=== PATIENT | female | born 1990 | race Caucasian/White ===

== ENCOUNTER 2020-06-14 16:43 | Emergency (ER) | payer OTHER, SELFPAY ==
--- NOTE | 2020-06-14 16:48 | ED.GENADULT ---
HPI - General Adult General Chief complaint: Upper Respiratory Infection Stated complaint: poosible sinus infection Time Seen by Provider: 06/14/20 17:00 Source: patient Mode of arrival: ambulatory Limitations: no limitations History of Present Illness HPI narrative: 23-year-old female patient presents to the [facility] with complaints of runny nose and a slight cough that started approximately 4 days ago. Denies any fevers, body aches or chills. Denies any chest pain, shortness of breath. Denies any abdominal pain, nausea, vomiting or diarrhea. Denies any sore throat or ear pain. Patient states she has been taking [id number] DayQuil, NyQuil, Zyrtec for her symptoms. Related Data Home Medications Medication Instructions Recorded Confirmed No Home Medications 06/14/20 06/14/20 Allergies Allergy/AdvReac Type Severity Reaction Status Date / Time No Known Allergies Allergy Verified 06/14/20 17:01 Review of Systems Review of Systems: Narrative: CONSTITUTIONAL: Denies fever, chills, or sweats. EYES: Denies visual changes, redness, or discharge. ENT: Positive clear rhinorrhea, denies congestion, sore throat, or otalgia. CARDIOVASCULAR: Denies chest pain, palpitations, or edema. RESPIRATORY: Positive slight nonproductive cough, denies dyspnea. GASTROINTESTINAL: Denies abdominal pain, nausea, vomiting, or diarrhea. GENITOURINARY: Denies dysuria or hematuria. SKIN: Denies rash or itching. MUSCULOSKELETAL: Denies back pain, joint pain, or myalgia. NEUROLOGIC: Denies headache, numbness, or weakness. PSYCHIATRIC: Denies anxiety or depression. [facility] Past Medical History Medical History (Updated 06/14/20 @ 17:07 by CORI Bose) Obesity Surgical History Surgical History (Updated 06/14/20 @ 16:52 by CORI Bose) History of tonsillectomy Social History Social History Smoking status: Never smoker Alcohol intake: current Gender identity (if verbalized by the patient): Female Comments At the time of my signature I agree with nursing past medical history, surgical, social, and family history. There is no relevant family history pertinent to the presenting complaint. Exam Narrative: Exam Narrative: GENERAL: Well-appearing, well-nourished, and in no acute distress. HEAD: Normocephalic, atraumatic. EYES: PERRLA and EOMI. ENT: Nares with erythema and edema noted bilaterally, no rhinorrhea or epistaxis. Mucous membranes moist. Posterior pharynx with no erythema, tonsillar joint, exudates or lesions present. There is a little bit of fluid noted behind the right ear. No erythema or foreign bodies noted to the canal. NECK: Supple. No lymphadenopathy CHEST: Clear to auscultation. No respiratory distress. HEART: Regular rate and rhythm. No murmur heard. Normal peripheral pulses. ABDOMEN: Soft, nontender, nondistended, normal active bowel sounds. EXTREMITIES: Normal range of motion. No edema. SKIN: Warm, dry, no rash. NEURO: No focal deficits. Alert and oriented x3. Course Vital Signs Vital signs: Vital Signs Temperature 36.4 C 06/14/20 16:54 Pulse Rate 89 06/14/20 16:54 Respiratory Rate 16 06/14/20 16:54 Blood Pressure 117/72 06/14/20 16:54 Pulse Oximetry 100 06/14/20 16:54 Temperature 36.4 C 06/14/20 16:54 Pulse Rate 89 06/14/20 16:54 Respiratory Rate 16 06/14/20 16:54 Blood Pressure 117/72 06/14/20 16:54 Pulse Oximetry 100 06/14/20 16:54 Vital signs reviewed. Medical Decision Making Differential Diagnosis Differential Diagnosis: Differential diagnosis: Allergic rhinitis, chronic sinusitis, tonsillitis, acute sinusitis, infectious mononucleosis, seasonal influenza, pertussis, diphtheria, meningococcal disease, viral syndrome, viral bronchitis, RSV, COVID-19 Discussed with patient the fact that she is not having any severe symptoms including fever, chest pain, shortness of breath and that her s
[2020-06-14 16:54] VITALS: BP 117/72; PULSE 89; RESP 16; TEMP 36.4; O2SAT 100
== END 2020-06-14 17:15 | disposition home or self-care (01) ==
PROVIDERS: Emergency Provider Nurse Practitioner Family; PCP Family Medicine
DX: J01.90 Acute sinusitis, unspecified (principal); Z20.828 Contact with and (suspected) exposure to other viral communicable diseases; E66.9 Obesity, unspecified
CPT/HCPCS: 99211; G0463

== ENCOUNTER 2020-06-15 08:34 | Outpatient (NON) | payer OTHER, SELFPAY ==
[2020-06-15 22:42] LABS: SARS-CoV-2 RNA PCR Negative
== END 2020-06-15 08:35 ==
LOC: ANHCOVIDDT 08:36
PROVIDERS: PCP Family Medicine; Visit Provider Nurse Practitioner Family
DX: J01.90 Acute sinusitis, unspecified (principal); Z20.828 Contact with and (suspected) exposure to other viral communicable diseases
CPT/HCPCS: 87635; C9803; U0003

== ENCOUNTER 2023-10-12 13:56 | Emergency (ER) | payer BC, SELFPAY ==
--- NOTE | 2023-10-12 14:14 | ED.EAR ---
HPI - Ear Problem General Chief complaint: Ear Stated complaint: Sinus/Ear Irritation Time Seen by Provider: 10/12/23 14:14 Source: patient Mode of arrival: ambulatory Limitations: no limitations History of Present Illness HPI Narrative: 33 yo F presents with c/o of nasal congestion, intermittent sinus pressure and dry cough for 2 wks. Sinus congestion worse past 2 days. R ear pain started yesterday, noticed clear drainage at work today. Pt states tearful at work today due to pain and manger let her leave early. Afebrile. all systems reviewed and negative except as noted above. Related Data Allergies Allergy/AdvReac Type Severity Reaction Status Date / Time amoxicillin AdvReac Mild Abdominal Verified 10/12/23 14:01 Pain melatonin AdvReac Mild upset Verified 10/12/23 14:01 stomach Review of Systems Review of Systems: CONSTITUTIONAL: Denies fever, chills, or sweats. EYES: Denies visual changes, redness, or discharge. ENT: Reports rhinorrhea, congestion, sinus pressure. Denies sore throat. Reports right ear pain. CARDIOVASCULAR: Denies chest pain, palpitations, or edema. RESPIRATORY: Reports cough. Denies dyspnea. GASTROINTESTINAL: Denies abdominal pain, nausea, vomiting, or diarrhea. GENITOURINARY: Denies dysuria or hematuria. SKIN: Denies rash or itching. MUSCULOSKELETAL: Denies back pain, joint pain, or myalgia. NEUROLOGIC: Denies headache, numbness, or weakness. PSYCHIATRIC: Denies anxiety or depression. All other systems reviewed are negative, except as documented in HPI. PMFSH Past Medical History Medical History Obesity Surgical History Surgical History History of tonsillectomy Social History Social History Smoking status: Never smoker Alcohol intake: current Gender identity (if verbalized by the patient): Female Comments At time of signature, agree with nursing past medical, surgical, social and family history. There is no relevant family history pertinent to the presenting complaint. Exam Narrative: GENERAL: This is a well-nourished, well-developed patient, in no apparent distress. HEAD: normocephalic, atraumatic. EYES: PERRL. Sclera clear/white. Vision is grossly intact. EARS: External ears normal, auditory canals clear and without drainage, right TM erythematous, purulence fluid, bulging. Left TM normal. No perforation bilaterally. Hearing grossly intact. NOSE: External nose normal with Congested with purulent nasal drainage, nares erythematous and swollen. THROAT: Mucous membranes moist, Erythema with postnasal drainage. No swelling or exudates. NECK: Neck supple, non-tender without lymphadenopathy, masses or thyromegaly. CARDIOVASCULAR: Regular rate and rhythm without murmurs, gallops, or rubs. RESPIRATORY: Clear to auscultation. Breath sounds equal bilaterally. No wheezes, rales, or rhonchi. SKIN: warm, Dry, intact with no suspicious lesions or rash, good texture and turgor. NEURO: awake, alert, and oriented to person, place and time. There were no obvious focal neurologic abnormalities. EXTREMITIES: No joint tenderness, effusion, or edema noted. Course Course Level of Care: Express Care Visit Vital Signs Vital signs: Vital Signs Temperature 36.9 C 10/12/23 14:15 Pulse Rate 98 10/12/23 14:15 Respiratory Rate 18 10/12/23 14:15 Blood Pressure 127/85 10/12/23 14:15 Pulse Oximetry 100 10/12/23 14:15 Oxygen Delivery Room Air 10/12/23 14:15 Temperature 36.9 C 10/12/23 14:15 Pulse Rate 98 10/12/23 14:15 Respiratory Rate 18 10/12/23 14:15 Blood Pressure 127/85 10/12/23 14:15 Pulse Oximetry 100 10/12/23 14:15 Oxygen Delivery Room Air 10/12/23 14:15 Reviewed Medical Decision Making MDM Narrative Medical decision making narrative: Patient is
[2023-10-12 14:15] VITALS: BP 127/85; PULSE 98; RESP 18; TEMP 36.9; O2SAT 100
== END 2023-10-12 14:25 | disposition home or self-care (01) ==
PROVIDERS: Emergency Provider Nurse Practitioner Family; PCP Family Medicine
DX: H66.91 Otitis media, unspecified, right ear (principal); J01.90 Acute sinusitis, unspecified; E66.9 Obesity, unspecified; Z68.41 Body mass index [BMI] 40.0-44.9, adult
CPT/HCPCS: 99213; G0463

== ENCOUNTER 2024-01-04 13:09 | Emergency (ER) | payer BC, SELFPAY ==
[2024-01-04 13:32] VITALS: BP 140/85; PULSE 97; RESP 18; TEMP 36.8; O2SAT 100
--- NOTE | 2024-01-04 13:46 | ED.GENADULT ---
HPI - General Adult General Chief complaint: Ear Stated complaint: right ear pain Time Seen by Provider: 01/04/24 13:46 Source: patient, RN notes reviewed and old records reviewed Mode of arrival: ambulatory Limitations: no limitations History of Present Illness HPI narrative: 33-year-old female presents to the [facility] with concerns for right ear pain that started a couple of days ago. Has a history of otitis externa. Has been swimming every day. Denies fevers. States she has taken Tylenol Related Data Allergies Allergy/AdvReac Type Severity Reaction Status Date / Time amoxicillin AdvReac Mild Abdominal Verified 01/04/24 13:39 Pain melatonin AdvReac Mild upset Verified 01/04/24 13:39 stomach Review of Systems Review of Systems: All systems reviewed & are unremarkable except as noted in HPI and below Constitutional: Constitutional: Reports no additional constitutional complaints Eyes: Eyes: Reports no additional eye complaints ENT: Reports as per HPI and Reports otalgia Cardiovascular: Cardiovascular: Reports no additional cardiovascular complaints, Denies chest pain and Denies dyspnea Respiratory: Respiratory: Reports no additional respiratory complaints, Denies chest congestion, Denies cough and Denies dyspnea Gastrointestinal: Gastrointestinal: Reports no additional gastrointestinal complaints, Denies abdominal pain, Denies nausea and Denies vomiting Musculoskeletal: Musculoskeletal: Reports no additional musculoskeletal complaints Integumentary/Breasts: Skin/Breast: Reports system reviewed and no additional complaints, except as docu Neurologic: Reports system reviewed and no additional complaints, except as documented Psychiatric: Psychiatric: Reports no additional psychiatric complaints Allergic/Immunologic: Allergic/Immunologic: Reports no additional allergic/immunologic complaints PMFSH Past Medical History Medical History Obesity Surgical History Surgical History History of tonsillectomy Social History Social History Smoking status: Never smoker Alcohol intake: current Gender identity (if verbalized by the patient): Female Comments At the time of my signature, I reviewed and agree with the nursing past medical, surgical, social, and family history. There is no relevant family history pertinent to the patient complaint. Exam Const: General: cooperative, healthy appearing, comfortable, no acute distress, well developed, alert and well nourished Nutritional Appearance: well nourished Orientation/consciousness: patient oriented x3 Limitations: no limitations HENMT: Head: normal to inspection Ears: hearing grossly normal bilaterally, external ears normal, mastoids normal, Abnormal EAC present erythema on the right, edema on the right, EAC tenderness on the right and otic discharge purulent on the right and TM abnormal erythematous on the right Face/Nose/Sinus: Normal external nose present, Normal nares present, Normal nasal mucous membranes and turbinates present, normal facial exam and face symmetric Face and sinus: normal facial exam and face symmetric Eyes: General: appearance normal, both eyes and all related structures Alignment and Position: alignment normal Periorbital: periorbital findings normal Pupils: Equal, round and reactive pupils present EOM: EOMs intact bilaterally Neck: Neck: normal visual inspection, full ROM, no lymphadenopathy and no meningeal signs Chest: Chest palpation & inspection: normal inspection of the chest Resp: Effort & Inspection: normal respiratory effort and able to speak in complete sentences Auscultation: clear to auscultation bilaterally, no crackles, no rales, no rhonchi and no wheezes Cardio: Rate: regular rate Rhythm: regular rhythm Skin: General skin exam: normal color
== END 2024-01-04 14:00 | disposition home or self-care (01) ==
PROVIDERS: Emergency Provider Nurse Practitioner; PCP Family Medicine
DX: H60.91 Unspecified otitis externa, right ear (principal); H66.91 Otitis media, unspecified, right ear; E66.9 Obesity, unspecified; Z68.41 Body mass index [BMI] 40.0-44.9, adult
CPT/HCPCS: 99213; G0463

== ENCOUNTER 2025-01-15 07:21 | Outpatient (CLI) | payer BC, SELFPAY ==
--- OUTSIDE RECORDS SUMMARY | 2025-01-15 07:26 | XMS_ITS | Clinical Summary ---
Author Organization [facility] Address [address] [place] [address] Care Team Providers Care Complaint Inspector Name Role Phone Carlos Joe MD Primary Care Provider [phone] Source Comments [facility],non-owned Affiliates and Associated Physician Practices is amultiple site organization consisting of ambulatory clinics and hospital sitesin [place], [place], [place] and [place]. This disclosure is being madepursuant to the Care Everywhere program and may not contain all information available regarding this patient. Last updated 18.[facility] mSnap Allergies Active Allergy Reactions Criticality Noted Date Comments Amoxicillin Diarrhea 11/08/2016 Medications * Be aware that medications may not be up to date on this document. Alwaysverify current medications with the patient. 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 Gender Identity Not on file Sexual Orientation Not on file Last Filed Vital Signs Vital Sign Reading Time Taken Comments Blood Pressure 118/82 11/08/2016 11:53 AM CDT Pulse 85 11/08/2016 11:53 AM CDT Temperature 36.9 C (98.5 F) 11/08/2016 11:53 AM CDT Respiratory Rate 16 11/08/2016 11:53 AM CDT Oxygen Saturation 98% 11/08/2016 11:53 AM CDT Inhaled Oxygen Concentration - - Weight 97.5 kg (215 lb) 11/08/2016 11:53 AM CDT Height 152.4 cm (5') 11/08/2016 11:53 AM CDT Body Mass Index 41.99 11/08/2016 11:53 AM CDT Plan of Treatment Health Maintenance Due Date Last Done Comments HIV SCREENING 2006 HEPATITIS C SCREENING 03/05/2009 DTAP/TDAP/TD VACCINES (1 - Tdap) 2010 HEPATITIS B VACCINE (1 of 3 - 19+ 3-dose series) 2010 PAP SMEAR 2012 HPV VACCINE (1 - 3-dose SCDM series) 2018 COVID-19 VACCINE (1 - 2023-2 5 season) 2024 DEPRESSION SCREENING 07/02/2024 INFLUENZA VACCINE (#1) 2025 ZOSTER VACCINE (1 of 2) 2041 HIB VACCINE Aged Out No longer eligi ble based on patient's age to complete this topic MENINGOCOCCAL (Group B) VACC INE SHARED DECISION-MAKING Aged Out No longer eligibl e based on patient's age to complete this topic MENINGOCOCCAL GROUPS A/C/Y/W VACCINE Aged Out No longer eligible b ased on patient's age to complete this topic PNEUMOCOCCAL VACCINE Aged Out No long er eligible based on patient's age to complete this topic Insurance ANTHEM Care Teams Complaint Inspector Relationship Specialty Start Date End Date Carlos Joe MD [address] [place] [address] PCP - General Family Medicine 09/01/16
--- OUTSIDE RECORDS SUMMARY | 2025-01-15 07:26 | XMS_ITS | Encounter Summary ---
Author Organization [facility] Address [address] [place] [address] Care Team Providers Care Weight Analyst Name Role Phone Carlos Joe MD Primary Care Provider Encounter Details Date Type Department Care Team (Late st Contact Info) Description 07/31/2023 Lab Requisition [facility] - DermPath Lab [address] [place] [address] Negro Shepard MD [address] [address] Social History Tobacco Use Types Packs/Day Years Used Date Smoking Tobacco: Never Comments No Sex and Gender Information Value Date Recorded Sex Assigned at Not on file 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 Gender Identity Not on file Sexual Orientation Not on file documented as of this encounter Plan of Treatment Not on file documented as of this encounter Procedures Procedure Name Priority Date/Time Associated Diagnosis Comments DERMATOPATHOLOGY Routine 07/30/2023 12:0 0 AM UTILIZATION REVIEW COORDINATOR documented in this encounter Results * DERMATOPATHOLOGY (07/30/2023 12:00 AM UTILIZATION REVIEW COORDINATOR) Case Report Dermatopathology Report Case: [id number] Authorizing Provider: Negro Shepard MD Collected: 07/30/2023 12:00 AM Ordering Location: [facility] DermPath Lab Received: 07/31/2023 09:42 AM Pathologist: Radha Leung MD Specimen: Skin, scalp 1:12 PM UTILIZATION REVIEW COORDINATOR DERMATOPATHOLOGY LABORATORY Final Diagnosis Specimen A. SKIN, scalp: TRICHILEMMAL (PILAR) CYST WITH EVIDENCE OF RUPTURE (L72.12) NOT PRESENT AT SAMPLED MARGIN 4 1:12 PM [facility] DERMATOPATHOLOGY LABORATORY at [address] [facility] Clinical History CYST Path# [id number] Check Margin 4 1:12 PM [facility] DERMATOPATHOLOGY LABORATORY Gross Description Specimen A: Received is one formalin filled container labeled with the patient's name and designated scalp. The specimen consists of a piece of skin measuring [id number] mm. The specimen is serially sectioned and a sales representative cash registers section is submitted in cassette 1. Jar 1. 4 1:12 PM [facility] DERMATOPATHOLOGY LABORATORY Microscopic Description Specimen A. SKIN, scalp: Sections show a cyst that is lined by stratified squamous epithelium that shows trichilemmal keratinization (no granular layer). There is homogeneous pink keratin within the cyst. Surrounding this is an infiltrate with neutrophils, histiocytes, and multinucleated giant cells. This lesion is not present at the sampled margin of the specimen. 1:12 PM [facility] DERMATOPATHOLOGY LABORATORY Disclaimer An external and internal positive and negative controls are appropriate for the histochemical, immunohistochemical and immunofluorescence stain(s) in this case (if any), except where stated explicitly. The performance characteristics of the stain(s) cited in this report were developed and its performance characteristic determined by the Dermatopathology Laboratory at [facility], directed by Dr. Roberto Cunningham. These tests need not be, and therefore are not, approved by the [place] Food and Drug Administration. The tests are used for clinical purposes. Billing Codes Specimen Charges Stain Charges 05185 1 4 1:12 PM [facility] DERMATOPATHOLOGY LABORATORY Embedded Images 4 1:12 PM [facility] DERMATOPATHOLOGY LABORATORY Pathology/Cytolog y TISSUE SPECIMEN FROM SKIN / Unknown 07/30/2023 07/31/2023 9:42 AM [facility] us Negro Shepard MD LAB - PATHOLOGY/CYTOLOGY ORDER ARYAN Final Result DERMATOPATHOLOGY LABORATORY [facility] - Department of Dermatology [address] [phone] documented in this encounter Visit Diagnoses Not on filedocumented in this encounter Care Teams Weight Analyst Relationship Specialty Start Date End Date Carlos Joe MD [address] [place] [address] PCP - General Family Medicine 09/01/16 documented as of this encounter
--- OUTSIDE RECORDS SUMMARY | 2025-01-15 07:26 | XMS_ITS | Clinical Summary ---
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 Gender Identity Not on file Sexual Orientation Not on file Plan of Treatment Health Maintenance Due Date Last Done Comments Cervical Cancer Screening Pa p Smear (Age 30 to 64) Every 3 Years 1991 Annual Physical 1994 Hepatitis C 2009 DTaP, Tdap and Td Vaccines ( 1 - Tdap) 2010 Hepatitis B Vaccines (1 of 3 - 19+ 3-dose series) 2010 Cervical Cancer Screening Pa p with HPV Testing (Age 30 to 64) Every 5 Years 2021 Cervical Cancer Screening with HPV 2021 COVID-19 Vaccine ( - 2023-2 5 season) 2024 HPV Vaccines Aged Out No longer eligi ble based on patient's age to complete this topic Meningococcal B Vaccine Aged Out No l onger eligible based on patient's age to complete this topic Meningococcal Vaccine Aged Out No philippe matthew eligible based on patient's age to complete this topic Pneumococcal Vaccine: Pediat rics (0 to 5 Years) and At-Risk Patients (6 to 49 Years) Aged Out No longer eligible b ased on patient's age to complete this topic RSV Immunizations Under 20 Months Aged Out No longer eligible based on patient's age to complete this topic
--- OUTSIDE RECORDS SUMMARY | 2025-01-15 07:26 | XMS_ITS | Encounter Summary ---
Author Organization [facility] Address [address] [place] [address] Care Team Providers Care Feltmaker Name Role Phone Carlos Joe MD Primary Care Provider [phone] Encounter Details Date Type Department Care Team (Late st Contact Info) Description 07/31/2023 Lab Requisition [facility] - DermPath Lab [address] [place] [address] Negro Shepard MD [address] [place] [address] Social History Tobacco Use Types Packs/Day Years Used Date Smoking Tobacco: Never Comments No Sex and Gender Information Value Date Recorded Sex Assigned at Not on file 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
[2025-01-15 08:17] LABS: Hematocrit 38.3 % (37.0-47.0); Hemoglobin 12.1 g/dL (12.0-15.0); Immature Granulocyte Percent A 0.3 % (0-0.5); Lymphocytes Absolute Auto 1.93 K/mm3 (0.9-3.2); Mean Corpuscular HGB Conc 31.6 g/dl (32-36); Mean Corpuscular Hemoglobin 24.6 pg (26-34); Mean Corpuscular Volume 78.0 fl (80-100); Nucleated Red Blood Cells Absolute Auto 0.000 K/mm3 (0.0-0.012); Nucleated Red Blood Cells Perc 0.0 % (0.0-0.2); Platelet Count Result 456 k/mm3 (150-375); Red Blood Count 4.91 M/mm3 (4.2-5.4); White Blood Count 9.3 K/mm3 (4.5-10.0)
[2025-01-15 08:38] LABS: Alanine Aminotransferase 32 U/L (6-35); Albumin Level 4.4 g/dL (3.5-5.1); Alkaline Phosphatase 81 U/L (38-126); Anion Gap 11 mmol/L (4-12); Aspartate Amino Transferase 34 U/L (14-36); Bilirubin,Total 0.4 mg/dL (0.2-1.3); Blood Urea Nitrogen 8 mg/dL (7-17); Calcium 9.3 mg/dL (8.4-10.2); Carbon Dioxide 23 mmol/L (22-30); Chloride 104 mmol/L (98-107); Cholesterol 192 mg/dL (0-200); Estimated Glomerular Filt Rate > 60; Glucose 105 mg/dL (65-110); HDL Direct 43 mg/dL; Potassium 4.2 mmol/L (3.4-5.0); Sodium 138 mmol/L (137-145); Total Protein 8.0 g/dL (6.3-8.2); Triglycerides 146 mg/dL (<150)
[2025-01-15 09:14] LABS: Thyroid Stimulating Hormone 1.540 uIU/mL (0.465-4.680)
[2025-01-15 09:25] LABS: Hemoglobin A1C 5.9 % (<5.7)
== END 2025-01-15 07:22 | disposition home or self-care (01) ==
LOC: ANHLAB 07:24
PROVIDERS: PCP Family Medicine
DX: Z00.00 Encounter for general adult medical examination without abnormal findings (principal); E66.9 Obesity, unspecified
CPT/HCPCS: 36415; 80053; 80061; 83036; 84443; 85025

== ENCOUNTER 2025-05-14 14:19 | Outpatient (CLI) | payer BC, SELFPAY ==
--- OUTSIDE RECORDS SUMMARY | 2025-05-14 14:41 | XMS_ITS | Clinical Summary ---
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 Gender Identity Not on file Sexual Orientation Not on file Plan of Treatment Health Maintenance Due Date Last Done Comments Cervical Cancer Screening Pa p Smear (Age 30 to 64) Every 3 Years 1991 Annual Physical 1994 Hepatitis C 2009 DTaP, Tdap and Td Vaccines ( 1 - Tdap) 2010 Hepatitis B Vaccines (1 of 3 - 19+ 3-dose series) 2010 HPV Vaccines (1 - 3-dose SCD M series) 2018 Cervical Cancer Screening Pa p with HPV Testing (Age 30 to 64) Every 5 Years 2021 Cervical Cancer Screening with HPV 2021 COVID-19 Vaccine ( - 2024-2 6 season) 2025 Influenza Adult (#1) 2025 Hepatitis A Vaccines Aged Out No long er eligible based [...]
--- OUTSIDE RECORDS SUMMARY | 2025-05-14 14:41 | XMS_ITS | Encounter Summary ---
Author Organization [facility] Address [address] [place] [address] Care Team Providers Care Family Program Specialist Name Role Phone Carlos Joe MD Primary Care Provider [phone] Encounter Details Date Type Department Care Team (Late st Contact Info) Description 07/31/2023 Lab Requisition [facility] - DermPath Lab [address] [place] [address] Negro Shepard MD [address] [place] [address] Social History Tobacco Use Types Packs/Day Years Used Date Smoking Tobacco: Never Comments No Sex and Gender Information Value Date Recorded Sex Assigned at Not on file 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 Gender Identity Not on file Sexual Orientation Not on file documented as of this encounter Plan of Treatment Not on file documented as of this encounter Procedures Procedure Name Priority Date/Time Associated Diagnosis Comments DERMATOPATHOLOGY Routine 07/30/2023 12:0 0 AM TRAFFIC ANALYST documented in this encounter Results * DERMATOPATHOLOGY (07/30/2023 12:00 AM TRAFFIC ANALYST) Case Report Dermatopathology Report Case: [id number] Authorizing Provider: Negro Shepard MD Collected: 07/30/2023 12:00 AM Ordering Location: [facility] DermPath Lab Received: 07/31/2023 09:42 AM Pathologist: Radha Leung MD Specimen: Skin, scalp 1:12 PM TRAFFIC ANALYST DERMATOPATHOLOGY LABORATORY Final Diagnosis Specimen A. SKIN, scalp: TRICHILEMMAL (PILAR) CYST WITH EVIDENCE OF RUPTURE (L72.12) NOT PRESENT AT SAMPLED MARGIN 4 1:12 PM [facility] DERMATOPATHOLOGY LABORATORY at [address] [facility] Clinical History CYST Path# [id number] Check Margin 4 1:12 PM [facility] DERMATOPATHOLOGY LABORATORY Gross Description Specimen A: Received is one formalin filled container labeled with the patient's name and designated scalp. The specimen consists of a piece of skin measuring 58m10e7 mm. The specimen is serially sectioned and a accounts receivable representative section is submitted in cassette 1. Jar 1. 4 1:12 PM [facility] DERMATOPATHOLOGY LABORATORY Microscopic Description Specimen A. SKIN, scalp: Sections show a cyst that is lined by stratified squamous epithelium that shows trichilemmal keratinization (no granular layer). There is homogeneous pink keratin within the cyst. Surrounding this is an infiltrate with neutrophils, histiocytes, and multinucleated giant cells. This lesion is not present at the sampled margin of the specimen. 4 1:12 PM [facility] DERMATOPATHOLOGY LABORATORY Disclaimer An external and internal positive and negative controls are appropriate for the histochemical, immunohistochemical and immunofluorescence stain(s) in this case (if any), except where stated explicitly. The performance characteristics of the stain(s) cited in this report were developed and its performance characteristic determined by the Dermatopathology Laboratory at [facility], directed by Dr. Roberto Cunningham. These tests need not be, and therefore are not, approved by the [place] Food and Drug Administration. The tests are used for clinical purposes. Billing Codes Specimen Charges Stain Charges 43302 1 4 1:12 PM [facility] DERMATOPATHOLOGY LABORATORY Embedded Images 4 1:12 PM [facility] DERMATOPATHOLOGY LABORATORY Pathology/Cytolog y TISSUE SPECIMEN FROM SKIN / Unknown 07/30/2023 07/31/2023 9:42 AM [facility] us Negro Shepard MD LAB - PATHOLOGY/CYTOLOGY ORDER ARYAN Final Result DERMATOPATHOLOGY LABORATORY [facility] - Department of Dermatology [address], [address] [phone] documented in this encounter Visit Diagnoses Not on filedocumented in this encounter Care Teams Family Program Specialist Relationship Specialty Start Date End Date Carlos Joe MD [address] [place] [address] PCP - General Family Medicine 09/01/16 documented as of this encounter
--- OUTSIDE RECORDS SUMMARY | 2025-05-14 14:41 | XMS_ITS | Encounter Summary ---
Author Organization [facility] Address [address] [place] [address] Care Team Providers Care Weaving Loom Operator Name Role Phone Carlos Joe MD Primary Care Provider [phone] Encounter Details Date Type Department Care Team (Late st Contact Info) Description 07/31/2023 Lab Requisition [facility] - DermPath Lab [address] [place] [address] Negro Shepard MD [address] [place] [address] Social History Tobacco Use Types Packs/Day Years Used Date Smoking Tobacco: Never Comments No Sex and Gender Information Value Date Recorded Sex Assigned at Not on file 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
--- OUTSIDE RECORDS SUMMARY | 2025-05-14 14:41 | XMS_ITS | Clinical Summary ---
Author Organization [facility] Address [address] [place] [address] Care Team Providers Care Marketing Traffic Coordinator Name Role Phone Carlos Joe MD Primary Care Provider [phone] Source Comments [facility],non-owned Affiliates and Associated Physician Practices is amultiple site organization consisting of ambulatory clinics and hospital sitesin [place], [place], [place] and [place]. This disclosure is being madepursuant to the Care Everywhere program and may not contain all information available regarding this patient. Last updated 18.[facility] Allergies Active Allergy Reactions Criticality Noted Date Comments Amoxicillin Diarrhea 11/08/2016 Medications * Be aware that medications may not be up to date on this document. Alwaysverify current medications with the patient. 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
== END 2025-05-14 14:20 | disposition home or self-care (01) ==
LOC: ANHAUDIO 14:19
PROVIDERS: PCP Family Medicine; Visit Provider Otolaryngology
DX: H65.491 Other chronic nonsuppurative otitis media, right ear (principal); H73.891 Other specified disorders of tympanic membrane, right ear; H69.90 Unspecified Eustachian tube disorder, unspecified ear
CPT/HCPCS: 92557; 92567